=== PATIENT | male | born 1960 | race Caucasian/White ===

== ENCOUNTER 2023-05-21 21:05 | Emergency (ER) | payer OTHER, MEDICAID ==
[~2023-05-21] VITALS: Ht 170.2 cm; Wt 75.0 kg
[2023-05-21 21:09] VITALS: BP 142/77; PULSE 86; RESP 16; TEMP 98.2; O2SAT 97
[2023-05-21] MEDS ORDERED: DIAZEPAM 5 MG/ML 2ML CPJ IV ONE (21:30)
[2023-05-21] MEDS ORDERED: ONDANSETRON HCL 4MG/2ML INJ IV ONE (21:30)
[2023-05-21] MEDS ORDERED: MECLIZINE 25MG TABLET PO ONE (21:30)
[2023-05-21] MEDS ORDERED: MECLIZINE 12.5MG TABLET PO NR (21:45)
[2023-05-21 22:04] LABS: BASOPHILS % 0.4 % (0.0-2.0); EOSINOPHILS % 0.7 % (0.0-5.0); HEMATOCRIT. 37.9 % (42.0-52.0); HEMOGLOBIN. 12.9 g/dL (14.0-18.0); LYMPHOCYTES % 14.8 % (20.0-50.0); MEAN CORPUSCULAR HEMOGLOBIN 29.5 pg (28.0-32.0); MEAN CORPUSCULAR HGB CONC 33.9 g/dL (31.0-37.0); MEAN CORPUSCULAR VOLUME 86.9 fL (80.0-94.0); MONOCYTES % 6.5 % (2.0-8.0); NEUTROPHILS % 77.6 % (40.0-76.0); PLATELET 214 x1000/uL (130-400); RED BLOOD CELL COUNT 4.36 mill/uL (4.7-6.1); RED CELL DISTRIBUTION WIDTH 14.5 % (11.6-14.6); WHITE BLOOD COUNT 9.9 x1000/uL (4.5-11.0)
[2023-05-21 22:16] LABS: CHLORIDE 100 mEq/L (98-107); INDEX HEMOLYSI 1 (1-3); INDEX ICTERIC 1 (1-4); INDEX LIPEMIC 1 (1-3); POTASSIUM 3.4 mEq/L (3.5-5.1); SODIUM 133 mEq/L (136-145)
[2023-05-21 22:27] LABS: ALANINE AMINOTRANSFERASE 47 IU/L (13-61); ASPARTATE AMINOTRANSFERASE 24 IU/L (15-37); BILIRUBIN TOTAL 0.6 mg/dL (0.1-1.0); CALCIUM 8.9 mg/dL (8.5-10.1); CARBON DIOXIDE 25 mEq/L (21-32); CREATININE 0.6 mg/dL (0.6-1.3); GLUCOSE 165 mg/dL (70-105); NT PRO B-TYPE NATRIURETIC PEP 56 pg/mL (5-125); UREA NITROGEN BLOOD 11 mg/dL (7-21)
[2023-05-22] MEDS ORDERED: ONDANSETRON HCL 4MG/2ML INJ IV NR (00:15)
[2023-05-22] MEDS ORDERED: DIAZEPAM 5 MG/ML 2ML CPJ IV NR (00:15)
[2023-05-22] MEDS ORDERED: MECL-159 PO (01:49)
[2023-05-22] MEDS ORDERED: DIAZ5TAB MT (01:49)
[2023-05-22] MEDS ORDERED: ONDA4TAB11 PO (01:49)
== END 2023-05-22 02:54 | disposition home or self-care (01) ==
LOC: ER 22:37
DX: R42 Dizziness and giddiness (principal); E11.9 Type 2 diabetes mellitus without complications; I10 Essential (primary) hypertension; Z86.73 Personal history of transient ischemic attack (TIA), and cerebral infarction without residual deficits
CPT/HCPCS: 99284; 70450; 80053; 83880; 85025; 85610; 36415; J8597; J2405